=== PATIENT | female | born 1970 ===

== ENCOUNTER 2018-08-17 06:10 | Day surgery (SDC) | payer OTHER ==
[~2018-08-17] VITALS: Ht 162.6 cm; Wt 76.2 kg
[~2018-08-17 06:10] MED LIST: MULTIPLE VITAM1 EACH PO
== END 2018-08-18 08:00 | disposition home or self-care (01) ==
LOC: CIR.AMB 06:10 → O/R 12:56 → CIR.AMB 12:56 → SURH 13:12 → O/R 13:12 → CIR.AMB 14:02 → SURH 08-18 20:09 → O/R 08-18 20:09
PROVIDERS: Specialist
PROC: 0J0H3ZZ Alteration of Left Lower Arm Subcutaneous Tissue and Fascia, Percutaneous Approach (ICD-10-PCS; 2018-08-17)
PROC: 0J0D3ZZ Alteration of Right Upper Arm Subcutaneous Tissue and Fascia, Percutaneous Approach (ICD-10-PCS; 2018-08-17)
PROC: 0J0F3ZZ Alteration of Left Upper Arm Subcutaneous Tissue and Fascia, Percutaneous Approach (ICD-10-PCS; 2018-08-17)
PROC: 0J0G3ZZ Alteration of Right Lower Arm Subcutaneous Tissue and Fascia, Percutaneous Approach (ICD-10-PCS; 2018-08-17)
PROC: 0HBV0ZZ Excision of Bilateral Breast, Open Approach (ICD-10-PCS; 2018-08-17)
PROC: 0J080ZZ Alteration of Abdomen Subcutaneous Tissue and Fascia, Open Approach (ICD-10-PCS; principal; 2018-08-17 07:00)
DX: E65 Localized adiposity (principal); N64.81 Ptosis of breast; N62 Hypertrophy of breast